=== PATIENT | male | born 1945 | race Hispanic/Latino ===

== ENCOUNTER 2017-06-07 02:55 | Emergency (ER) | payer OTHER, MEDICARE ==
[~2017-06-07] VITALS: Ht 172.7 cm; Wt 121.8 kg
[2017-06-07 03:05] VITALS: BP 196/92; PULSE 59; RESP 16; O2SAT 92
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
[2017-06-07] MEDS ORDERED: 0.9% Sodium Chloride 1,000 ML IV ONE (04:05)
[2017-06-07] MEDS ORDERED: HYDROcodone-APAP 5-325 mg Tablet PO ONE (04:05)
[2017-06-07 04:36] LABS: BASOPHILS % (AUTO) 0.2 % (0-3); EOSINOPHILS % (AUTO) 0.7 % (0-5); MONOCYTES % (AUTO) 8.1 % (4-12); Mean Corpuscular Hemoglobin 28.9 pg (27.0-35.0); Mean Corpuscular Volume 85.8 fL (81-100); NEUTROPHILS % (AUTO) 74.7 % (40-74); Platelet Count 238 bil/L (150-400)
[2017-06-07 04:39] VITALS: BP 156/89; PULSE 63; RESP 16; O2SAT 98
[2017-06-07 05:01] VITALS: BP 166/62; PULSE 61; RESP 18; O2SAT 95
[2017-06-07 05:18] LABS: TROPONIN T < 0.010 ug/L (0.0-0.011)
[2017-06-07 05:19] LABS: Lipase 81 U/L (13-60)
[2017-06-07 05:46] VITALS: BP 170/64; PULSE 61; RESP 16; O2SAT 94
[2017-06-07] MEDS ORDERED: _HYDROcodone/APAP 5-325 mg Tablet PO PRN (06:00)
[2017-06-07] MEDS ORDERED: _Ondansetron ODT 4 mg Tablet PO PRN (06:00)
[2017-06-07 06:23] VITALS: BP 154/62; PULSE 60; RESP 16; O2SAT 96
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
== END 2017-06-07 06:37 | disposition home or self-care (01) ==
LOC: SED 02:55
DX: S20.20XA Contusion of thorax, unspecified, initial encounter (principal); S10.91XA Abrasion of unspecified part of neck, initial encounter; V48.0XXA Car driver injured in noncollision transport accident in nontraffic accident, initial encounter; Y93.9 Activity, unspecified; Y92.410 Unspecified street and highway as the place of occurrence of the external cause; Y99.8 Other external cause status
CPT/HCPCS: 36415; 71020; 71260; 74177; 80053; 83690; 84484; 85025; 85610; 85730; 93005; 96374; 99285; G0480; J1885; J7030; Q9967